=== PATIENT | male | born 1965 | race Caucasian/White ===

== ENCOUNTER 2021-08-14 11:34 | Outpatient (CLI) | payer OTHER ==
--- NOTE | 2021-08-14 13:14 | XRay Report ---
CHEST 2 VIEWS INDICATION / CLINICAL INFORMATION: TB EXPOSURE. COMPARISON: None available. FINDINGS: SUPPORT DEVICES: None. HEART / MEDIASTINUM: The heart size and pulmonary vasculature are normal. LUNGS / PLEURA: No significant pulmonary or pleural abnormality. No pneumothorax. ADDITIONAL FINDINGS: No significant additional findings. IMPRESSION: No acute findings. No radiographic evidence of active tuberculosis. Signer Name: Corona England MD Signed: 08/14/2021 1:10 PM Workstation Name: [id number]
== END 2021-08-14 11:35 | disposition home or self-care (01) ==
LOC: XRAY 11:34
PROVIDERS: ATTEND Family Medicine
DX: R76.11 Nonspecific reaction to tuberculin skin test without active tuberculosis (principal)
CPT/HCPCS: 71046